=== PATIENT | male | born 1995 | race Caucasian/White ===

== ENCOUNTER → 2018-09-04 | Outpatient (REF) | payer OTHER, MEDICAID ==
[2018-09-04 18:06] LABS: BASO % 0.5 % (0.0-1.0); EOS # 0.1 10^3/uL (0.0-0.50); EOS % 1.3 % (0.0-3.0); HEMATOCRIT 46.4 % (42.0-52.0); HEMOGLOBIN 15.8 g/dl (13.5-17.5); LYMPH # 2.5 10^3/uL (1.5-6.5); LYMPH % 31.6 % (24.0-44.0); MEAN CORPUSCULAR HEMOGLOBIN 30.2 pg (27.0-33.0); MEAN CORPUSCULAR HGB CONC 34.1 g/dl (32.0-36.5); MEAN CORPUSCULAR VOLUME 88.7 fl (80.0-96.0); MONO # 0.6 10^3/uL (0.0-0.8); MONO % 6.9 % (0.0-5.0); NEUTROPHILS # 4.8 10^3/uL (1.8-7.7); NEUTROPHILS % 59.4 % (36.0-66.0); PLATELET COUNT, AUTOMATED 298 10^3/uL (150-450); RED BLOOD COUNT 5.23 10^6/uL (4.30-6.10)
[2018-09-04 18:07] LABS: ALBUMIN 4.4 GM/DL (3.2-5.2); ALT/SGPT 46 U/L (12-78); BILIRUBIN,TOTAL 0.8 MG/DL (0.2-1.0); BLOOD UREA NITROGEN 12 MG/DL (7-18); CALCIUM LEVEL 9.1 MG/DL (8.5-10.1); CARBON DIOXIDE LEVEL 30 MEQ/L (21-32); CHLORIDE LEVEL 102 MEQ/L (98-107); CHOLESTEROL LEVEL 175 MG/DL (<200); CHOLESTEROL RISK RATIO 4.069 (<5); CREATININE FOR GFR 0.83 MG/DL (0.70-1.30); FREE T4 1.35 NG/DL (0.76-1.46); GLOMERULAR FILTRATION RATE > 60.0 (>60); GLUCOSE, FASTING 83 MG/DL (70-100); HDL CHOLESTEROL 43 MG/DL (>40); LDL CHOLESTEROL 106 MG/DL (<100); NON-HDL-C 132 MG/DL; POTASSIUM SERUM 3.9 MEQ/L (3.5-5.1); SODIUM LEVEL 137 MEQ/L (136-145); TOTAL PROTEIN 7.4 GM/DL (6.4-8.2); TRIGLYCERIDES LEVEL 129 MG/DL (<150)
[2018-09-04 18:11] LABS: TOTAL 25(OH) VITAMIN D 19.2 NG/ML (30.0-100.0)
[2018-09-04 18:16] LABS: HEMOGLOBIN A1c 5.4 %
[2018-09-07 00:08] LABS: Lyme Disease IgG/IgM Antibodie <0.91 ISR (0.00-0.90); Lyme Disease IgM Ab Quantitati <0.80 index (0.00-0.79)
== END ==
LOC: M LAB REF 16:25
PROVIDERS: ATTEND Internal Medicine
DX: Z13.228 Encounter for screening for other metabolic disorders (principal)

== ENCOUNTER → 2018-09-12 | Outpatient (CLI) | payer OTHER, MEDICAID ==
--- NOTE | 2018-09-12 09:46 | REP ---
Forearm: Two views. History: Swelling. Mass and lump. The patient reports a remote prior history of fracture. Findings: AP and lateral views of the left forearm demonstrate evidence of an ulnar minus configuration at the wrist. The radius appears intact. There is a localized area of well established chronic non aggressive periosteal reaction involving the distal diaphysis of the ulna. Centrally located within this periosteal reaction and periosteal thickening is a 1 cm radiolucency eccentrically positioned along the dorsal cortex. There is slight adjacent soft tissue swelling. There is mild olecranon process spurring. Bones, joints, and soft tissues are otherwise unremarkable. 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 CT scanning may be characterize this further. Electronically Signed by Theron Draper MD 09/12/2018 09:37 A
== END ==
LOC: M RAD 09:11
PROVIDERS: ATTEND Family Medicine
DX: R22.32 Localized swelling, mass and lump, left upper limb (principal)

== ENCOUNTER → 2018-09-20 | Outpatient (CLI) | payer OTHER ==
--- NOTE | 2018-09-22 09:17 | REP ---
CT of the wrist: Comparison is the left forearm plain film study dated 09/12/2018. In the distal shaft of the ulna. There is a radiolucent lesion at the cortical medullary junction with a central nidus. There is cortical thickening overlying the peripheral aspect of the lesion. There is mild reactive change along the medial margin of the lesion. There is no calcification in the central nidus. 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 I would recommend a radionuclide bone scan of the left wrist for further evaluation. An osteoid osteoma would demonstrate marked uptake, particularly in the nidus, whereas a Jas abscess would should be centrally photopenic. Electronically Signed by Andrzej Kendall MD 09/21/2018 02:53 P
== END ==
LOC: M RAD 18:06
PROVIDERS: ATTEND Family Medicine
DX: R22.32 Localized swelling, mass and lump, left upper limb (principal)

== ENCOUNTER → 2018-10-16 | Outpatient (CLI) | payer OTHER ==
--- NOTE | 2018-10-22 23:34 | SLEEPHOME ---
DATE OF PROCEDURE: 10/16/2018 ORDERED BY: EVETTE Varner Diagnostic home sleep testing was performed due to concern for the obstructive sleep apnea syndrome in this patient with history of excessive somnolence and nonrestorative sleep. For testing a nocturnal T3 respiratory monitoring device was used. Continuous record was made of pulse, oxygen saturation, airflow, chest, abdominal strain and body position. 10 hours and 19 minutes of data were reviewed. There were 8 hours and 19 minutes marked as time in bed. During the interval marked time in bed, there were 53 respiratory events identified of 10 seconds in duration or greater for a respiratory event index of 6.4. The events were primarily obstructive hypopneas. Baseline pulse rate 88, pulse rate ranged 50-126. Baseline saturation 93%. Saturations did fall as low as 80% and testing was performed in both the supine and nonsupine positions. IMPRESSION: Abnormal home sleep testing with repetitive respiratory events and oxygen desaturations to 80% with a respiratory event index of 6.4 is consistent with the obstructive sleep apnea syndrome. RECOMMENDATIONS: As the events were associated primarily with the supine posture, sleep position retraining for avoidance of the supine posture may be sufficient. If the patient's symptoms persist, referral for formal evaluation and in laboratory pressure titration should be considered.
== END ==
LOC: M SLEEP HO 14:21
PROVIDERS: ATTEND Nurse Practitioner Family
DX: R06.83 Snoring (principal)

== ENCOUNTER → 2019-01-17 | Outpatient (CLI) | payer OTHER ==
--- NOTE | 2019-01-17 21:15 | REP ---
MRI LUMBAR SPINE WITHOUT CONTRAST: 01/17/2019. Clinical history: Low back pain, states bilateral radiation into lower extremities with prolonged sitting. Technique: Sagittal and axial projections in T1 and T2 with a sagittal T2 STIR sequence. Findings: No prior study. The normal lordosis is reduced. There is loss of disc water signal at L4-5 and loss of height. There is mild loss of height and less decreased water signal at L3-4 and L5-S1. All vertebral body heights are maintained. The L2-3 disc level maintains height and water signal. There is no compression deformity or destructive lesion. Conus terminates at the at T12-L1. At L1-2 and L2-3, there is no disc bulge or herniation and no spinal or foraminal stenosis. At L3-4, there is posterior osteophytic ridging with a broad-based disc bulge and central disc protrusion. This indents the ventral thecal sac. There is crowding of nerve roots at this level causing moderate central stenosis with lateral recess stenosis. Some mild ligamentum flavum hypertrophy. The L3 nerve roots show no compression in the foramina. At L4-5, there is a broad-based disc bulge with central disc protrusion. This abuts but does not displace the L5 nerve roots in the neural canal. Some ligamentum and mild facet hypertrophic changes are seen. The L4 nerve roots show no compression in the foramina. At L5-S1, some broad-based disc bulge with posterior disc protrusion abutting the S1 nerve roots and displacing the left one slightly in the canal. Cross-sectional area of the canal is adequate. There is some facet hypertrophic change, but the foramina show no L5 nerve root compression at this level. Impression: 1. Multilevel degenerative disc disease with central canal stenosis of moderate severity due to combined factors including disc protrusion at L3-4 with minimal L3 nerve root compression in the foramina. 2. At L5-S1, there is a somewhat larger disc protrusion abutting both S1 nerve roots in the central canal and slightly displacing the left one but not causing significant central canal stenosis. The L5 nerve roots in the foramina are without encroachment. 3. L4-5 central disc protrusion without spinal or foraminal stenosis. The lower three levels do show facet and ligamentum hypertrophy. The L2-3 levels and above are normal. Electronically Signed by Avinash Cope MD 01/18/2019 09:35 P
== END ==
LOC: M RAD 17:56
PROVIDERS: ATTEND Family Medicine
DX: M51.26 Other intervertebral disc displacement, lumbar region (principal); M51.27 Other intervertebral disc displacement, lumbosacral region; M48.061 Spinal stenosis, lumbar region without neurogenic claudication